=== PATIENT | male | born 1970 | race Caucasian/White ===

== ENCOUNTER 2017-07-21 14:55 | Emergency (ER) | payer MEDICAID ==
[~2017-07-21] VITALS: Ht 188 cm; Wt 100.7 kg
[2017-07-21 15:43] LABS: HEMATOCRIT 46.1 % (39.2-51.8); HEMOGLOBIN 15.8 g/dL (13.7-18.0); WHITE BLOOD COUNT 6.2 x10^3/uL (3.4-10)
[2017-07-21 15:57] LABS: ASPARTATE AMINO TRANSFERASE 32 U/L (15-37); BLOOD UREA NITROGEN 14 mg/dL (7-18)
[2017-07-21 16:02] LABS: IS PT STATUS REG ER OR PRE ER? YES
[2017-07-21] MEDS ORDERED: ASPIRIN 325 MG TABLET ONE (17:28)
[2017-07-21] MEDS ORDERED: ASPIRIN 325 MG TABLET PO ONE (17:30)
[2017-07-21 17:32] VITALS: BP 144/96
== END 2017-07-21 17:43 | disposition home or self-care (01) ==
LOC: ED 15:38
DX: R20.2 Paresthesia of skin (principal)
CPT/HCPCS: 36415; 70450; 80053; 84484; 85025; 85610; 93005; 99285